=== PATIENT | male | born 1950 | race Caucasian/White ===

== ENCOUNTER → 2019-12-14 | Outpatient (CLI) | payer MEDICARE ==
[~2019-12-14] MED LIST: IOPAMIDOL 370 MG/ML 200 ML INFUS..BTL INJ ONE; SODIUM CHLORIDE 0.9% 50ML 50 ML ONE
[2019-12-14 08:25] LABS: BLOOD UREA NITROGEN 5 mg/dL (7-26); BUN/CREATININE RATIO 7 (6-25); CREATININE, SERUM 0.74 mg/dL (0.72-1.25); EST GLOMERULAR FILTRATION RATE > 60 ML/MIN (60-)
--- NOTE | 2019-12-15 11:40 | Diagnostic Imaging Report ---
Abdomen and Pelvis CTA with RUNOFF PROTOCOL WITH AND WITHOUT IV CONTRAST. INDICATION: Leg pain COMPARISON: None. TECHNIQUE: Abdomen and pelvis and lower extremities were scanned utilizing a multidetector helical scanner from the lung base to the toes before and after administration of IV contrast. Coronal and sagittal reformations were obtained. 3D post-processing of the images was performed, and the post-processed images were used in interpretation. CTA runoff protocol was performed. IV CONTRAST: 100mL of Isovue 370 ORAL CONTRAST: None RADIATION DOSE: Total DLP: 1035 mGy*cm FINDINGS: VESSELS: There are mild calcified and noncalcified atherosclerotic plaques in the aorta and its major branches. There is no evidence of a flap within the aorta to suggest a dissection. The celiac artery, superior mesenteric artery, and inferior mesenteric artery are patent. 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 The dissection does not involve the common hepatic, splenic or left gastric arteries. There is a single right renal artery and a single left renal artery, both of which are patent. Right lower extremity: The common femoral artery, superficial femoral artery, and popliteal artery are patent. Mild atherosclerotic calcifications at the common femoral artery with minimal associated luminal narrowing. Mild scattered atherosclerotic calcifications of the superficial femoral artery and popliteal artery with multifocal mild luminal narrowing. Contrast bolus does not opacify the infrapopliteal vessels, limiting evaluation of runoff vessel patency. Left lower extremity: The common femoral artery, superficial femoral artery, and popliteal artery are patent. Mild atherosclerotic calcifications at the common femoral artery with mild associated luminal narrowing. Mild scattered atherosclerotic calcifications of the superficial femoral artery and popliteal artery with multifocal mild luminal narrowing. Contrast bolus does not opacify the infrapopliteal vessels, limiting evaluation of runoff vessel patency. NON-VASCULAR: LOWER THORAX: Bibasilar dependent subsegmental atelectasis. HEPATOBILIARY: Mild diffuse hepatic steatosis. No focal liver lesion. No biliary ductal dilation. Normal gallbladder. SPLEEN: No splenomegaly. PANCREAS: No focal masses or ductal dilatation. ADRENALS: No adrenal nodules. KIDNEYS/URETERS: No hydronephrosis, stones, or solid mass lesions. PELVIC ORGANS/BLADDER: Unremarkable. PERITONEUM / RETROPERITONEUM: No free air or fluid. LYMPH NODES: No lymphadenopathy. GI TRACT: No distention or wall thickening. Normal appendix. BONES AND SOFT TISSUES: Unremarkable. IMPRESSION: No critical stenoses identified in the aorta, iliac arteries, or above-knee arteries of the legs bilaterally. Infrapopliteal vessels are not opacified due to contrast bolus timing, limiting evaluation of runoff vessel patency. 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 No acute findings in the abdomen or pelvis. Signed by: Attila Bird MD on 12/15/2019 11:38 AM
== END ==
LOC: CT 07:44
PROVIDERS: ATTEND Internal Medicine Cardiovascular Disease
DX: M79.605 Pain in left leg (principal); M79.604 Pain in right leg; I73.9 Peripheral vascular disease, unspecified
CPT/HCPCS: 36415; 75635; 82565; 84520; Q9967

== ENCOUNTER → 2021-08-18 | Day surgery (SDC) | payer MEDICARE ==
[2021-08-15 08:47] LABS: BASOPHILS # (AUTO) 0.1 (0.0-0.1); BASOPHILS % 1.9 % (0.0-1.0); EOSINOPHILS # (AUTO) 0.1 (0.0-0.4); EOSINOPHILS % 0.9 % (0.0-6.0); HEMATOCRIT 45.5 % (38.2-49.6); HEMOGLOBIN 15.2 g/dL (14.0-18.0); LYMPHOCYTES # (AUTO) 2.1 (1.0-3.2); LYMPHOCYTES % 35.9 % (18.0-39.1); MEAN CORPUSCULAR HEMOGLOBIN 34.2 pg (28-32); MEAN CORPUSCULAR HGB CONC 33.4 g/dL (31-35); MEAN CORPUSCULAR VOLUME 102.5 fL (81-99); MONOCYTES # (AUTO) 0.8 (0.2-0.8); MONOCYTES % 13.5 % (4.4-11.3); NEUTROPHILS # (AUTO) 2.8 (2.1-6.9); NEUTROPHILS % 47.6 % (38.7-80.0); PLATELET COUNT 178 x10e3/uL (140-360); RED BLOOD COUNT 4.44 x10e6/uL (4.3-5.7); RED CELL DISTRIBUTION WIDTH 12.3 % (11.7-14.4)
[~2021-08-18] MED LIST changes: +BENICAR20 MG PO; +FENTANYL CITRATE/PF 100MCG/2 ML INJ ONE; +HYOSCYAMINE SULFATE 0.5 MG/ML INJ ONE; -IOPAMIDOL 370 MG/ML 200 ML INFUS..BTL INJ ONE; +LIDOCAINE HCL 2% LOCAL INJ 5 ML SDV VIAL INJ ONE; +METOCLOPRAMIDE HCL 10 MG/2ML VIAL ONE; +MIDAZOLAM HCL 2 MG/2 ML VIAL ONE; +ONDANSETRON HCL INJ 2MG/ML 2ML 2 MG/ML VIAL ONE; +POVIDONE IODINE 0.05% 0.05 % ML PO ONE; +PROPOFOL IV EMULSION 10 MG/ML 50 ML VIAL IV ONE; -SODIUM CHLORIDE 0.9% 50ML 50 ML ONE
[2021-08-18 08:55] VITALS: BP 109/61
== END | disposition home or self-care (01) ==
LOC: OR 07:10
PROVIDERS: ATTEND Internal Medicine Gastroenterology
DX: Z12.11 Encounter for screening for malignant neoplasm of colon (principal); D12.3 Benign neoplasm of transverse colon; K62.1 Rectal polyp; K64.8 Other hemorrhoids; I10 Essential (primary) hypertension; Z68.25 Body mass index [BMI] 25.0-25.9, adult; Z72.0 Tobacco use; F10.10 Alcohol abuse, uncomplicated; Z01.810 Encounter for preprocedural cardiovascular examination; Z01.812 Encounter for preprocedural laboratory examination; Z20.822 Contact with and (suspected) exposure to COVID-19
CPT/HCPCS: 36415; 45380; 45385; 85025; 93005; J1980; J2001; J2250; J2405; J2704; J2765; J3010; U0002; 45378

== ENCOUNTER → 2022-06-10 | Outpatient (CLI) | payer MEDICARE ==
[~2022-06-10] MED LIST changes: -FENTANYL CITRATE/PF 100MCG/2 ML INJ ONE; -HYOSCYAMINE SULFATE 0.5 MG/ML INJ ONE; -LIDOCAINE HCL 2% LOCAL INJ 5 ML SDV VIAL INJ ONE; -METOCLOPRAMIDE HCL 10 MG/2ML VIAL ONE; -MIDAZOLAM HCL 2 MG/2 ML VIAL ONE; -ONDANSETRON HCL INJ 2MG/ML 2ML 2 MG/ML VIAL ONE; -POVIDONE IODINE 0.05% 0.05 % ML PO ONE; -PROPOFOL IV EMULSION 10 MG/ML 50 ML VIAL IV ONE
== END ==
LOC: RAD 13:34
PROVIDERS: ATTEND Family Medicine
DX: Z86.16 Personal history of COVID-19 (principal)
CPT/HCPCS: 71046